=== PATIENT | male | born 1975 | race Caucasian/White ===

== ENCOUNTER → 2020-02-19 15:23 | Outpatient (CLI) | payer BC, SELFPAY ==
[2020-02-19 16:57] LABS: Hemoglobin A1C% w Est Avg Glu 5.4 % (4.0-6.0)
[2020-02-19 18:35] LABS: Cholesterol 174 mg/dL (140-199); HDL Cholesterol 33 mg/dL (40-60); LDL Cholesterol Calculated 86 mg/dL (<100); Triglycerides 273 mg/dL (35-150)
== END ==
PROVIDERS: PCP Family Medicine; Referring Provider Family Medicine; Visit Provider Family Medicine
DX: Z00.00 Encounter for general adult medical examination without abnormal findings (principal)
CPT/HCPCS: 36415; 80061; 83036

== ENCOUNTER → 2020-07-28 10:28 | Outpatient (CLI) | payer BC, SELFPAY ==
[2020-07-28] MEDS: COVID-19 VACC #1, MRNA(MOD) 100 MCG/0.5 ML VIAL IM (10:33)
== END ==
PROVIDERS: PCP Family Medicine; Visit Provider Internal Medicine
DX: Z23 Encounter for immunization (principal)
CPT/HCPCS: 0011A; 91301

== ENCOUNTER → 2020-08-25 10:31 | Outpatient (CLI) | payer BC, SELFPAY ==
[2020-08-25] MEDS: COVID-19 VACC #2, MRNA(MOD) 100 MCG/0.5 ML VIAL IM (10:36)
== END ==
PROVIDERS: PCP Family Medicine; Visit Provider Internal Medicine
DX: Z23 Encounter for immunization (principal)
CPT/HCPCS: 0012A; 91301

== ENCOUNTER → 2021-04-28 14:01 | Outpatient (CLI) | payer BC, SELFPAY ==
[2021-04-28 14:24] LABS: COVID19 -Nasal RAPID POSITIVE (Negative)
== END ==
PROVIDERS: PCP Family Medicine; Visit Provider Physician Assistant
DX: R09.89 Other specified symptoms and signs involving the circulatory and respiratory systems (principal); R09.81 Nasal congestion
CPT/HCPCS: 87635

== ENCOUNTER 2021-12-18 15:39 | Emergency (ER) | payer BC, SELFPAY ==
[2021-12-18 15:46] VITALS: BP 120/72; PULSE 74; RESP 16; TEMP 36.9; O2SAT 98
--- NOTE | 2021-12-18 15:49 | DI.RAD.S_ITS ---
PROCEDURE: XR ANKLE RT MIN 3V INDICATIONS: pain/swelling TECHNIQUE: 3 views of the ankle were acquired. COMPARISON: None. FINDINGS: Bones: No fractures or dislocations. Ankle mortise is normally aligned. No suspicious bony lesions. Soft tissues: No tibiotalar joint effusion. Achilles tendon appears normal. IMPRESSION: No acute osseous abnormalities. If clinical symptoms persist or clinical suspicion for pathology is high, a repeat examination in 7-10 days, or advanced imaging such as CT or MRI is suggested for further evaluation. Dictated by: Juan Carlos Ko M.D. on 12/18/2021 at 16:30 Approved by: Juan Carlos Ko M.D. on 12/18/2021 at 16:34
--- NOTE | 2021-12-18 18:40 | ED_ITS ---
HPI - Extremity Injury (Lower) <OLINDA Santizo - Last Filed: 12/18/21 18:50> General Chief Complaint: Extremity Injury, Lower Stated Complaint: Right ankle swollen Time Seen by Provider: 12/18/21 18:05 Source: patient Mode of arrival: Ambulatory History of Present Illness HPI Narrative: 46-year-old male, nonsmoker, presents emergency department with right ankle pain x2 weeks. Patient denies any trauma to the area but has pain approximately 2 in above the right lateral malleolus. Small lump noted consistent with a hematoma with no current bruising. Patient believes he may have hurt his ankle while lif ting weights but does not recall what he may have done. Patient able to ambulate without difficulty. Related Data Home Medications Medication Instructions Recorded Confirmed No Known Home Medications 02/19/20 02/19/20 Allergies Allergy/AdvReac Type Severity Reaction Status Date / Time shellfish derived Allergy Severe N/V and Verified 02/19/20 15:04 hives ant bite Allergy Severe swelling Uncoded 02/19/20 15:04 Review of Systems <OLINDA Santizo - Last Filed: 12/18/21 18:50> Review of Systems Narrative: Narrative: GENERAL: Denies chills, fatigue, fever, sweats. See HPI HEENT: Denies sinus pain, ear pain, sore throat, difficulty swallowing, dizziness. RESPIRATORY: Denies dyspnea, cough, wheezing, sputum. CARDIOVASCULAR: Denies chest pain, palpitations, edema. GASTROINTESTINAL: Denies nausea, vomiting, abdominal pain, diarrhea, constipation. : Denies dysuria, frequency, incontinence, hematuria, urinary retention, flank pain. MSK: Denies weakness. Endorses right ankle pain. SKIN: Denies rash, skin lesions, or pruritis. NEUROLOGIC: Denies weakness, dizziness, headache, numbness, confusion. PSYCHIATRIC: No concerning psychosocial issues. Patient History <OLINDA Santizo - Last Filed: 12/18/21 18:50> Medical History Heartburn Family History Mother No problems noted. Father Diabetes mellitus Social History Smoking Status: Never smoker alcohol intake: former (Quit ) substance use type: does not use Smoking Status: Never smoker Exam <OLINDA Santizo - Last Filed: 12/18/21 18:50> Narrative Exam Narrative: Exam Narrative: GENERAL: This is a well-nourished, well-developed patient, in no acute distress HEAD: Atraumatic. Normocephalic. EYES: Pupils equal round and reactive. Extraocular motions intact. No scleral icterus, injection or drainage. ENT: Nose without bleeding, purulent drainage. Throat without erythema, tonsillar hypertrophy or exudate. Airway patent. NECK: Trachea midline. No JVD or lymphadenopathy. Nontender. CARDIOVASCULAR: Regular rate and rhythm without murmurs, peripheral pulses intact, cap refill <2 sec. RESPIRATORY: Breath sounds equal and clear bilaterally. No wheezes, rales, or rhonchi. No cough. No increased respiratory effort. No accessory muscle use. GASTROINTESTINAL: Abdomen soft, non-tender, nondistended without guarding or rebound. No suprapubic pain. MSK: Moves all extremities. Normal range of motion, no clubbing or edema. Neurovascularly intact. NEURO: A&O x 3. SKIN: Warm, dry, no rashes or lesions noted. Initial Vital Signs Initial Vital Signs: Vital Signs Temperature 98.4 F 12/18/21 15:46 Pulse Rate 74 12/18/21 15:46 Respiratory Rate 16 12/18/21 15:46 Blood Pressure 120/72 12/18/21 15:46 Pulse Oximetry 98 12/18/21 15:46 Oxygen Delivery Method 12/18/21 15:46 Reviewed Extrem Other: ANKLE: There is minimal swelling but no bruising or asymmetry. There is no tenderness to general palpation. Sensation grossly intact. There is no tenderness over the medial, lateral malleolus, proximal tibia/fibula. The anterior mortise is non-tender. Flexion and extension is intact. The contralateral ankle exam is unremarkable. <Jaspal Carranza MD - Last Filed: 12/19/21 04:57> Initial Vital Signs Initial Vital Signs: Vital Signs Temperature 98.4 F 12/18/21 15:46 Pulse Rate 74 12/18/21 15:46 Respiratory Rate 16 12/18/21 15:46 Blood Pressure 120/72 12/18/21 15:46 Pulse Oximetry 98 12/18/21 15:46 Oxygen Delivery Method 12/18/21 15:46 Course <OLINDA Santizo - Last Filed: 12/18/21 18:50> Orders Ordered: ED Orders 12/18/21 15:49 XR ankle RT min 3V Stat Vital Signs Vital signs: Vital Signs - 8 hr 12/18/21 15:46 Temperature 98.4 F Pulse Rate 74 Respiratory Rate 16 Blood Pressure 120/72 Pulse Oximetry 98 Oxygen Delivery Method Room Air <Jaspal Carranza MD - Last Filed: 12/19/21 04:57> Orders Ordered: ED Orders 12/18/21 15:49 XR ankle RT min 3V Stat Vital Signs Vital signs: Vital Signs - 8 hr 12/18/21 15:46 Temperature 98.4 F Pulse Rate 74 Respiratory Rate 16 Blood Pressure 120/72 Pulse Oximetry 98 Oxygen Delivery Method Room Air MDM - Extremity Injury (Lower) <OLINDA Santizo - Last Filed: 12/18/21 18:50> Differential Diagnosis Differential diagnosis: Likely other (Right ankle pain) Imaging Data Extremity x-ray #1: Radiologist's Impression: [address] [address] XRay Report Signed Patient: Marbin Stock MR#: [id number] : 1975 Acct:[id number] Age/Sex: 46 / M Date of Service: 12/18/21 Loc: ED Accession Number: [id number] ?? Procedure: XR ankle RT min 3V Ordering Provider: Jessica Day D.O. PROCEDURE:? XR ANKLE RT MIN 3V ? INDICATIONS:? pain/swelling ? TECHNIQUE:? 3 views of the ankle were acquired.? ? COMPARISON:? None. ? FINDINGS:? ? Bones:? No fractures or dislocations.? Ankle mortise is normally aligned.? No suspicious bony lesions.? ? Soft tissues:? No tibiotalar joint effusion.? Achilles tendon appears normal.? ? ? IMPRESSION:? No acute osseous abnormalities.? If clinical symptoms persist or clinical suspicion for pathology is high, a repeat examination in 7-10 days, or advanced imaging such as CT or MRI is suggested for further evaluation. ? ? ? Dictated by: Juan Carlos Ko M.D. on 12/18/2021 at 16:30 ? ? Approved by: Juan Carlos Ko M.D. on 12/18/2021 at 16:34 ? MDM Narrative Medical decision making narrative: 46-year-old male presents to the emergency department with right ankle pain. X- ray was negative and assessment was reassuring. Discussed rice and NSAIDs. Discussed plan of care and return precautions with patient, who was agreeable to course of action. Discharge Plan Departure Patient Disposition: Home Clinical Impression: Acute right ankle pain Instructions: DI for Ankle Pain Activity Restrictions/Additional Instructions: *You have been diagnosed with right ankle pain. Your x-ray was negative and my assessment was encouraging. I recommend you apply heat or ice to the affected area for comfort, along with elevation above your heart, and Tylenol or ibuprofen as needed for discomfort. If symptoms persist or worsen, please follow-up with your family doctor or feel free to return to the emergency department. *What to do: *Please continue to take your regular medications as directed. [ ] New medication prescriptions sent to your pharmacy: [ ] [ ] New medication written as a paper prescription [ x] No new medications given *Please follow up with your primary care provider in 2-3 days, call for an ap pointment. Let them know you were seen in the Emergency Department and that we ask that you be seen in follow up. We will electronically transmit a record of today's note if your PCP is in our system *If you do not have a primary care provider please contact the [facility] Resource line at [phone]. They will ask some questions about your medical history and help get you set up with a doctor in the community. ? Return to ER if you should have any new, worsening or concerning symptoms, such as worsening pain, severe headache, confusion, chest pain, difficulty breathing, fever greater than 101 F, shaking chills, persistent vomiting to the point that you cannot drink fluids, or other new or worsening symptoms. Prescriptions: No Action No Known Home Medications Referrals: Jose Quick MD [Primary Care Provider] - Visit Report Forms: Patient Portal/API <Jaspal Carranza MD - Last Filed: 12/19/21 04:57> [facility] I was immediately available in the department for consultation. ?This documentation has been reviewed and I agree with assessment and plan. Supervised by Jaspal Carranza MD
[2021-12-18 18:48] VITALS: BP 119/74; PULSE 60; RESP 18; O2SAT 100
== END 2021-12-18 18:52 | disposition home or self-care (01) ==
PROVIDERS: Emergency Provider Registered Nurse; PCP Family Medicine
DX: M25.571 Pain in right ankle and joints of right foot (principal)
CPT/HCPCS: 73610; 99281; 99283